=== PATIENT | male | born 1965 | race Caucasian/White ===

== ENCOUNTER 2025-02-23 12:51 | Emergency (ER) | payer BC, OTHER ==
[2025-02-23 13:55] LABS: BASOPHILS ABSOLUTE AUTO 0.0 K/mm3 (0.0-0.2); BASOPHILS PERCENT AUTO 0.3 % (0.0-1.0); EOSINOPHILS ABSOLUTE AUTO 0.1 K/mm3 (0.0-0.4); EOSINOPHILS PERCENT AUTO 0.6 % (0.0-6.0); IMMATURE GRAN ABSOLUTE AUTO 0.01 K/mm3 (0.00-0.05); IMMATURE GRAN PERCENT AUTO 0.1 % (0.0-0.4); LYMPHOCYTES ABSOLUTE AUTO 1.5 K/mm3 (1.0-4.8); LYMPHOCYTES PERCENT AUTO 19.0 % (24.0-44.0); MEAN PLATELET VOLUME 9.2 fl (9.4-12.4); MONOCYTES ABSOLUTE AUTO 0.6 K/mm3 (0.0-0.8); MONOCYTES PERCENT AUTO 7.5 % (0.0-8.0); NEUTROPHILS ABSOLUTE AUTO 5.6 K/mm3 (1.8-7.7); NEUTROPHILS PERCENT AUTO 72.5 % (41.0-71.0); NRBC ABSOLUTE 0.00 (0.00-0.02); NRBC PERCENT 0.0 % (0.0-0.2); PLATELET COUNT,PLT 267 K/mm3 (150-400); RED BLOOD CELL COUNT 4.63 M/mm3 (4.52-5.90); WHITE BLOOD CELL COUNT,WBC 7.73 K/mm3 (3.9-11.3)
[2025-02-23] MEDS: Sodium Chloride 0.9% 10 ML Syringe FLUSH PRN (14:07)
[2025-02-23 14:45] LABS: A/G RATIO 1.3 (1-2); ALANINE AMINOTRANSFERASE,ALT 39 U/L (16-63); ASPARTATE AMNIOTRANSFERASE,AST 25 U/L (15-37); BILIRUBIN TOTAL 0.3 mg/dL (0.2-1.0); BLOOD UREA NITROGEN,BUN 30 mg/dL (7-18); CARBON DIOXIDE,CO2 29 mEq/L (21-32); CHLORIDE,CL 100 mEq/L (98-107); CREATININE 1.5 mg/dL (0.7-1.3); EST CRCL DRUG DOSING (CG) 50.78 mL/min; ESTIMATED GFR 52 mL/min (>60); GLUCOSE RANDOM 203 mg/dL (70-99); POTASSIUM,K 5.0 mEq/L (3.5-5.1); PROTEIN TOTAL,TP 7.0 g/dl (6.4-8.2); SODIUM,NA 138 mEq/L (136-145); TSH 0.835 uIU/mL (0.358-3.74)
== END 2025-02-23 16:40 | disposition home or self-care (01) ==
LOC: JD.ED 12:51
DX: E86.0 Dehydration (principal); E11.9 Type 2 diabetes mellitus without complications; N17.9 Acute kidney failure, unspecified; Z88.8 Allergy status to other drugs, medicaments and biological substances
CPT/HCPCS: 36415; 80053; 83735; 84443; 85025; 86140; 93005; 96360; 96361; 99283; 99285-25; J7030